=== PATIENT | female | born 1990 | race American Indian/Alaskan Native ===

== ENCOUNTER 2018-04-15 06:27 | Emergency (ER) | payer OTHER ==
[~2018-04-15] VITALS: Ht 172.7 cm; Wt 84.0 kg
[2018-04-15] MEDS ORDERED: IBUPROFEN 800MG TABLET PO ONE (07:00)
[2018-04-15 09:27] LABS: MONOTEST NEGATIVE (NEGATIVE)
[2018-04-15 10:27] VITALS: BP 134/71
== END 2018-04-15 10:18 | disposition home or self-care (01) ==
LOC: ER 07:23
DX: J06.9 Acute upper respiratory infection, unspecified (principal)
CPT/HCPCS: 81025; 86308; 87070; 87430; 99284

== ENCOUNTER 2018-09-29 18:19 | Emergency (ER) | payer OTHER ==
[~2018-09-29] VITALS: Ht 172.7 cm; Wt 87.0 kg
[2018-09-29] MEDS ORDERED: KETOROLAC 60MG/2ML VIAL IM STA (23:34)
[2018-09-30 00:26] VITALS: BP 151/93
[2018-09-30 00:30] LABS: CLARITY URINE TURBID (CLEAR); COLOR URINE YELLOW (YELLOW); KETONES URINE TRACE (NEGATIVE); LEUKOCYTE ESTERASE URINE 2+ (NEGATIVE); NITRITE URINE NEGATIVE (NEGATIVE); OCCULT BLOOD URINE NEGATIVE (NEGATIVE); PH URINE 6.5 (4.5-8.0); PROTEIN URINE TRACE (NEGATIVE); SPECIFIC GRAVITY URINE 1.033 (1.005-1.030)
== END 2018-09-30 00:28 | disposition home or self-care (01) ==
LOC: ER 20:42
DX: M54.41 Lumbago with sciatica, right side (principal); M25.561 Pain in right knee; N39.0 Urinary tract infection, site not specified
CPT/HCPCS: 81003; 81025; 96372; 99283; J1885

== ENCOUNTER 2019-01-24 13:17 | Emergency (ER) | payer OTHER ==
[~2019-01-24] VITALS: Ht 172.7 cm; Wt 84.0 kg
[2019-01-24] MEDS ORDERED: METHYLPREDNISOLONE SOD SUCC 125 MG/2 ML VIAL IM STA (14:54)
[2019-01-24] MEDS ORDERED: KETOROLAC 60MG/2ML VIAL IM STA (14:54)
[2019-01-24 16:26] VITALS: BP 118/73
== END 2019-01-24 16:35 | disposition home or self-care (01) ==
LOC: ER 13:17
DX: M54.41 Lumbago with sciatica, right side (principal); M53.87 Other specified dorsopathies, lumbosacral region
CPT/HCPCS: 81025; 96372; 99283; J1885; J2930

== ENCOUNTER 2021-01-07 08:23 | Emergency (ER) | payer OTHER ==
[~2021-01-07] VITALS: Ht 172.7 cm; Wt 86.0 kg
[2021-01-07 08:59] VITALS: BP 138/100
[2021-01-07] MEDS ORDERED: ACETAMINOPHEN 325MG TABLET PO ONE (09:00)
[2021-01-07] MEDS ORDERED: IBUPROFEN 400MG TABLET PO ONE (09:00)
== END 2021-01-07 09:18 | disposition home or self-care (01) ==
LOC: ER 08:27
DX: R05 Cough (principal); R50.9 Fever, unspecified; Z20.822 Contact with and (suspected) exposure to COVID-19; J02.9 Acute pharyngitis, unspecified; F12.90 Cannabis use, unspecified, uncomplicated
CPT/HCPCS: 99283; C9803; U0003

== ENCOUNTER 2023-05-05 09:09 | Emergency (ER) | payer MEDICAID, OTHER ==
[~2023-05-05] VITALS: Ht 172.7 cm; Wt 91.0 kg
[2023-05-05 09:16] VITALS: BP 140/98; PULSE 100; RESP 16; TEMP 98.3; O2SAT 97
[2023-05-05 09:51] LABS: CLARITY URINE TURBID (CLEAR); COLOR URINE YELLOW (YELLOW); KETONES URINE TRACE (NEGATIVE); LEUKOCYTE ESTERASE URINE 1+ (NEGATIVE); NITRITE URINE NEGATIVE (NEGATIVE); OCCULT BLOOD URINE 1+ (NEGATIVE); PH URINE 5.5 (4.5-8.0); PROTEIN URINE TRACE (NEGATIVE); SPECIFIC GRAVITY URINE 1.032 (1.005-1.030); UROBILINOGEN URINE 0.2 E.U./dL (0.2-1.0)
[2023-05-05 09:57] LABS: BASOPHILS % 0.2 % (0.0-2.0); EOSINOPHILS % 2.3 % (0.0-5.0); HEMATOCRIT. 40.2 % (36.0-48.0); HEMOGLOBIN. 14.1 g/dL (12.0-16.0); LYMPHOCYTES % 17.3 % (20.0-50.0); MEAN CORPUSCULAR HEMOGLOBIN 29.9 pg (28.0-32.0); MEAN CORPUSCULAR VOLUME 85.1 fL (81.0-99.0); MONOCYTES % 5.2 % (2.0-8.0); PLATELET 327 x1000/uL (130-400); RED BLOOD CELL COUNT 4.72 mill/uL (4.2-5.4); RED CELL DISTRIBUTION WIDTH 14.2 % (11.6-14.6)
[2023-05-05 10:02] LABS: CHLORIDE 107 mEq/L (98-107)
[2023-05-05 10:28] LABS: B-HCG QUANTITATIVE 4356 mIU/mL (<3)
== END 2023-05-05 11:54 | disposition home or self-care (01) ==
LOC: ER 09:39
DX: O26.891 Other specified pregnancy related conditions, first trimester (principal); R10.30 Lower abdominal pain, unspecified; F12.10 Cannabis abuse, uncomplicated; Z3A.01 Less than 8 weeks gestation of pregnancy
CPT/HCPCS: 36415; 76801; 80053; 81003; 81025; 84702; 85025; 86850; 86900; 99284

== ENCOUNTER 2023-09-15 14:35 | Emergency (ER) | payer OTHER ==
[~2023-09-15] VITALS: Ht 170.2 cm; Wt 91.0 kg
[2023-09-15 15:09] LABS: BASOPHILS % 0.3 % (0.0-2.0); EOSINOPHILS % 3.5 % (0.0-5.0); HEMATOCRIT. 39.8 % (36.0-48.0); HEMOGLOBIN. 13.4 g/dL (12.0-16.0); LYMPHOCYTES % 24.8 % (20.0-50.0); MEAN CORPUSCULAR HEMOGLOBIN 29.3 pg (28.0-32.0); MEAN CORPUSCULAR HGB CONC 33.6 g/dL (31.0-37.0); MEAN PLATELET VOLUME 7.8 fl (7.4-10.4); MONOCYTES % 6.5 % (2.0-8.0); NEUTROPHILS % 64.9 % (40.0-76.0); PLATELET 336 x1000/uL (130-400); RED BLOOD CELL COUNT 4.57 mill/uL (4.2-5.4); RED CELL DISTRIBUTION WIDTH 13.2 % (11.6-14.6); WHITE BLOOD COUNT 8.3 x1000/uL (4.5-11.0)
[2023-09-15 15:20] LABS: PROTHROMBIN TIME 10.4 sec (9.6-11.0)
[2023-09-15 15:24] LABS: ALANINE AMINOTRANSFERASE 14 IU/L (10-49); ALBUMIN 4.2 g/dL (3.2-4.8); ASPARTATE AMINOTRANSFERASE 13 IU/L (<34); BILIRUBIN TOTAL 0.6 mg/dL (0.1-1.0); CALCIUM 8.8 mg/dL (8.7-10.4); CARBON DIOXIDE 26 mEq/L (21-32); CHLORIDE 103 mEq/L (98-107); CREATININE 0.6 mg/dL (0.6-1.0); GLUCOSE 110 mg/dL (70-105); POTASSIUM 3.8 mEq/L (3.5-5.1); SODIUM 137 mEq/L (136-145); UREA NITROGEN BLOOD 8 mg/dL (9-23)
[2023-09-15 15:38] VITALS: BP 142/100; O2SAT 99
[2023-09-15 16:11] LABS: CLARITY URINE CLOUDY (CLEAR); COLOR URINE YELLOW (YELLOW); GLUCOSE URINE NEGATIVE (NEGATIVE); KETONES URINE NEGATIVE (NEGATIVE); LEUKOCYTE ESTERASE URINE NEGATIVE (NEGATIVE); NITRITE URINE NEGATIVE (NEGATIVE); OCCULT BLOOD URINE 2+ (NEGATIVE); PH URINE 6.5 (4.5-8.0); PROTEIN URINE NEGATIVE (NEGATIVE); SPECIFIC GRAVITY URINE 1.027 (1.005-1.030)
[2023-09-15 16:14] LABS: SQUAMOUS EPITHELIAL CELL URINE 2+ /lpf (RARE/1+); WBC URINE 0-2 /hpf (0-2); YEAST URINE NONE SEEN
[2023-09-15 16:17] LABS: TROPONIN I HIGH SENSITIVITY < 4 ng/L (3.0-34)
[2023-09-15 16:46] LABS: BACTERIA URINE 2+
[2023-09-15] MEDS ORDERED: D-ME473S50 PO (19:42)
[2023-09-15] MEDS ORDERED: ALBU18HF2 IH (19:42)
[2023-09-15] MEDS ORDERED: NAPR-681 PO (19:42)
[2023-09-15 20:19] VITALS: PULSE 97; RESP 18; TEMP 98.2
== END 2023-09-15 20:23 | disposition home or self-care (01) ==
LOC: ER 14:35
DX: J20.9 Acute bronchitis, unspecified (principal); R07.89 Other chest pain; F12.10 Cannabis abuse, uncomplicated; Z20.822 Contact with and (suspected) exposure to COVID-19
CPT/HCPCS: 99284; 71045; 87426; 80053; 81003; 81025; 85025; 85610; 84484; 87804 ×2; 36415; C9803

== ENCOUNTER 2024-08-17 17:27 | Emergency (ER) | payer MEDICAID, OTHER ==
[~2024-08-17] VITALS: Ht 175.3 cm; Wt 85.0 kg
[~2024-08-17 17:27] MED LIST: ALBU18HF2 IH; D-ME473S50 PO; NAPR-681 PO
[2024-08-17 18:02] VITALS: O2SAT 100
[2024-08-17 18:27] LABS: BASOPHILS % 0.4 % (0.0-2.0); EOSINOPHILS % 1.9 % (0.0-5.0); HEMATOCRIT. 37.1 % (36.0-48.0); HEMOGLOBIN. 12.9 g/dL (12.0-16.0); LYMPHOCYTES % 14.9 % (20.0-50.0); MEAN CORPUSCULAR HEMOGLOBIN 29.4 pg (28.0-32.0); MEAN CORPUSCULAR HGB CONC 34.9 g/dL (31.0-37.0); MEAN CORPUSCULAR VOLUME 84.3 fL (81.0-99.0); MEAN PLATELET VOLUME 7.8 fl (7.4-10.4); MONOCYTES % 5.9 % (2.0-8.0); NEUTROPHILS % 76.9 % (40.0-76.0); PLATELET 322 x1000/uL (130-400); RED BLOOD CELL COUNT 4.41 mill/uL (4.2-5.4); RED CELL DISTRIBUTION WIDTH 13.4 % (11.6-14.6); WHITE BLOOD COUNT 13.6 x1000/uL (4.5-11.0)
[2024-08-17 18:31] LABS: CHLORIDE 108 mEq/L (98-107); SODIUM 139 mEq/L (136-145)
[2024-08-17 18:32] LABS: CARBON DIOXIDE 25 mEq/L (21-32)
[2024-08-17 18:33] LABS: CALCIUM 9.7 mg/dL (8.7-10.4)
[2024-08-17 18:37] LABS: CREATININE 0.7 mg/dL (0.6-1.0); GLUCOSE 85 mg/dL (70-105); UREA NITROGEN BLOOD 8 mg/dL (9-23)
[2024-08-17 18:53] LABS: B-HCG QUANTITATIVE 41818 mIU/mL (<3)
[2024-08-17 20:18] VITALS: BP 126/80; PULSE 79; RESP 16; TEMP 37.05852; O2SAT 99
== END 2024-08-17 20:20 | disposition home or self-care (01) ==
LOC: ER 17:27
DX: O46.91 Antepartum hemorrhage, unspecified, first trimester (principal); R10.2 Pelvic and perineal pain; F12.10 Cannabis abuse, uncomplicated; Z3A.11 11 weeks gestation of pregnancy
CPT/HCPCS: 36415; 76801; 80048; 84702; 85025; 86850; 86900; 99284

== ENCOUNTER 2025-09-18 16:01 | Emergency (ER) | payer MEDICAID ==
[~2025-09-18] VITALS: Ht 172.7 cm; Wt 95.0 kg
[~2025-09-18 16:01] MED LIST changes: +LABE100T9 PO
[2025-09-18 16:09] VITALS: BP 153/109; TEMP 36.7; O2SAT 99
[2025-09-18 16:59] VITALS: PULSE 86; RESP 18; O2SAT 99
[2025-09-18] MEDS: LIDOCAINE 5% PATCH TOP SCH (17:23)
[2025-09-18] MEDS: KETOROLAC 15MG/ML VIAL IM ONE (17:23)
== END 2025-09-18 18:38 | disposition home or self-care (01) ==
LOC: ER 16:01
DX: S46.911A Strain of unspecified muscle, fascia and tendon at shoulder and upper arm level, right arm, initial encounter (principal); I10 Essential (primary) hypertension; F12.90 Cannabis use, unspecified, uncomplicated; W19.XXXA Unspecified fall, initial encounter; Y93.89 Activity, other specified; Y92.89 Other specified places as the place of occurrence of the external cause; Y99.8 Other external cause status
CPT/HCPCS: 99283; 81025; 73030; 96372; J1885

== ENCOUNTER 2025-10-01 11:14 | Emergency (ER) | payer MEDICAID ==
[~2025-10-01] VITALS: Ht 175.3 cm; Wt 100.0 kg
[2025-10-01 11:27] VITALS: TEMP 36.9; O2SAT 98
[2025-10-01] MEDS ORDERED: HYDR25TA MT (12:11)
[2025-10-01] MEDS ORDERED: IBUP-1455 MT (12:11)
[2025-10-01] MEDS: IBUPROFEN 600MG TABLET PO NR (12:15)
[2025-10-01] MEDS: HYDROCHLOROTHIAZIDE 25MG TABLET PO NR (12:15)
[2025-10-01 12:50] VITALS: BP 170/114; PULSE 84; RESP 14; O2SAT 100
== END 2025-10-01 13:01 | disposition home or self-care (01) ==
LOC: ER 11:14
DX: G56.01 Carpal tunnel syndrome, right upper limb (principal); I10 Essential (primary) hypertension
CPT/HCPCS: 81025; 99283